=== PATIENT | male | born 1990 | race Caucasian/White ===

== ENCOUNTER 2018-11-14 19:28 | Emergency (ER) | payer MEDICAID ==
[2018-11-14] MEDS ORDERED: BABY ASPIRIN 81 MG CHEW PO ONE (20:26)
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
[2018-11-14 21:18] LABS: BASOPHIL % 0.3 % (0.0-0.4); Basophil (Absolute #) 0.02 (0-0.4); Eosinophil % 1.7 % (0.00-5.0); Eosinophil (Absolute #) 0.13 (0-0.5); Granulocyte Absolute (ANC) 4.35 (1.4-6.9); Granulocytes % 57.8 % (36.0-66.0); Hematocrit 44.2 % (42-50); Hemoglobin 14.9 gm/dl (12.5-18.0); Lymphocyte (Absolute #) 2.47 (1.0-4.6); Lymphocytes % 32.8 % (24.0-44.0); Mean Cell Volume 91.3 fl (78-100); Mean Corpuscular Hemoglobin 30.8 pg (26-32); Mean Corpuscular Hgb Concent. 33.7 g/dl (32-36); Mean Platelet Volume 11.7 fl (6-9.5); Monocyte (Absolute #) 0.56 (0.0-1.3); Monocytes % 7.4 % (0.0-12.0); Platelet Count 181 K/mm3 (150-450); Red Blood Count 4.84 M/mm3 (4.1-5.6); Red Cell Distribution Width 13.8 % (11.5-14.0); White Blood Count 7.5 K/mm3 (4.0-10.5)
[2018-11-14 21:21] LABS: INR 1.03 (0.8-3.0); PROTIME 11.6 SECONDS (8.83-12.87)
[2018-11-14 21:24] LABS: PTT 33.4 SECONDS (24.1-36.1)
[2018-11-14 21:31] LABS: ALBUMIN 4.4 g/dL (3.5-5.0); ALKALINE PHOSPHATASE 43 U/L (38-126); ANION GAP 10.6 MEQ/L (5-15); BLOOD UREA NITROGEN 18 mg/dL (9-20); CHLORIDE 107 mmol/L (98-107); Carbon Dioxide 27 mmol/L (22-30); Creatinine 1 0.73 mg/dL (0.66-1.25); D-DIMER QUANTITATION < 215 ng/mL (215-500); Glucose 92 mg/dL (74-106); Potassium 3.9 mmol/L (3.5-5.1); SGOT/AST 20 U/L (17-59); SGPT/ALT 12 U/L (0-50); SODIUM 140 mmol/L (137-145); Total Protein 7.3 g/dL (6.3-8.2)
--- NOTE | 2018-11-14 21:31 | XRAY ---
Indication: Chest pain. Comparison: None Portable chest demonstrates normal heart, lungs, and bony thorax with incidental tiny calcified granulomas.
[2018-11-14 22:07] VITALS: O2SAT 98
[2018-11-14] MEDS ORDERED: Zithromax 250 MG TABLET PO ONE (22:18)
[2018-11-14] MEDS ORDERED: Zithromax 250 MG TABLET ONE (22:20)
[2018-11-14 22:26] VITALS: BP 108/64; PULSE 58
== END 2018-11-14 22:25 | disposition home or self-care (01) ==
LOC: ED 19:28
DX: R07.89 Other chest pain (principal)
CPT/HCPCS: 36000; 36415; 71045; 80053; 84484; 85025; 85379; 85610; 85730; 93005; 94760; 99284; A9270-GY